=== PATIENT | male | born 1995 | race African-American/Black ===

== ENCOUNTER 2018-06-18 18:57 | Emergency (ER) | payer OTHER ==
[~2018-06-18] VITALS: Ht 180.3 cm; Wt 79.5 kg
[2018-06-18 18:57] VITALS: BP 143/66
[2018-06-18] MEDS ORDERED: IBUP80TA PO (19:36)
[2018-06-18] MEDS ORDERED: AMOX500C PO (19:36)
== END 2018-06-18 19:40 | disposition home or self-care (01) ==
LOC: M ED 18:57
DX: H66.41 Suppurative otitis media, unspecified, right ear (principal); Z72.0 Tobacco use

== ENCOUNTER 2019-12-08 22:49 | Emergency (ER) | payer OTHER ==
[~2019-12-08] VITALS: Ht 182.9 cm; Wt 81.8 kg
[~2019-12-08 22:49] MED LIST: AMOX500C PO; IBUP80TA PO
[2019-12-09 02:18] VITALS: BP 122/64
== END 2019-12-09 02:22 | disposition home or self-care (01) ==
LOC: M ED 22:49
DX: M79.10 Myalgia, unspecified site (principal)